=== PATIENT | female | born 1940 | race Caucasian/White ===

== ENCOUNTER 2022-03-17 12:36 | Outpatient (CLI) | payer MEDICARE, OTHER | END 2022-03-17 12:37 | disposition home or self-care (01) | LOC: CSHWCC 12:36 | PROVIDERS: ATTEND Nurse Practitioner Family | DX: L89.623 Pressure ulcer of left heel, stage 3 (principal) | CPT/HCPCS: 29581; 97139; 97607; G0463; 99203 ==

== ENCOUNTER 2022-03-25 11:05 | Outpatient (CLI) | payer MEDICARE, OTHER | END 2022-03-25 11:06 | disposition home or self-care (01) | LOC: CSHWCC 11:05 | PROVIDERS: ATTEND Nurse Practitioner Family | DX: T81.89XD Other complications of procedures, not elsewhere classified, subsequent encounter (principal); L89.623 Pressure ulcer of left heel, stage 3; R60.0 Localized edema | CPT/HCPCS: 29581; 97607 ==

== ENCOUNTER 2022-04-07 15:09 | Outpatient (CLI) | payer MEDICARE, OTHER | END 2022-04-07 15:10 | disposition home or self-care (01) | LOC: CSHWCC 15:09 | PROVIDERS: ATTEND Nurse Practitioner Family | DX: T81.89XD Other complications of procedures, not elsewhere classified, subsequent encounter (principal); L89.623 Pressure ulcer of left heel, stage 3; R60.0 Localized edema | CPT/HCPCS: 99213; G0463 ==

== ENCOUNTER 2022-04-21 14:24 | Outpatient (CLI) | payer MEDICARE, OTHER | END 2022-04-21 14:25 | disposition home or self-care (01) | LOC: CSHWCC 14:24 | PROVIDERS: ATTEND Nurse Practitioner Family | DX: L89.623 Pressure ulcer of left heel, stage 3 (principal); R60.0 Localized edema | CPT/HCPCS: 97139; G0463; 99213 ==

== ENCOUNTER 2022-05-05 13:54 | Outpatient (CLI) | payer MEDICARE, OTHER | END 2022-05-05 13:55 | disposition home or self-care (01) | LOC: CSHWCC 13:54 | PROVIDERS: ATTEND Nurse Practitioner Family | DX: L89.623 Pressure ulcer of left heel, stage 3 (principal); R60.0 Localized edema | CPT/HCPCS: 97139; G0463; 99213 ==

== ENCOUNTER 2022-05-20 13:25 | Outpatient (CLI) | payer MEDICARE, OTHER | END 2022-05-20 13:26 | disposition home or self-care (01) | LOC: CSHWCC 13:25 | PROVIDERS: ATTEND Nurse Practitioner Family | DX: L89.623 Pressure ulcer of left heel, stage 3 (principal) | CPT/HCPCS: 97139; G0463; 99212 ==